=== PATIENT | female | born 1990 | race African-American/Black ===

== ENCOUNTER → 2018-05-01 | Emergency (ER) | payer MEDICAID ==
[~2018-05-01] VITALS: Ht 188 cm; Wt 93.2 kg
[~2018-05-01] MED LIST: MOTRIN600 MG PO; PERCOCET 5/3251 TA1 PO; PRENATABS RX TA1 TAB PO; VENTOLIN HFA18 GM INH
[2018-05-01 15:42] VITALS: BP 119/81; Ht 188 cm; Wt 93.2 kg
[2018-05-01 16:18] LABS: BASOPHILS 0.6 % (0-2); EOSINOPHILS 7.5 % (0-7); HEMATOCRIT 41.4 % (36.0-48.0); HEMOGLOBIN 15.1 g/dL (12-16); IMMATURE GRANULOCYTES 0.2 % (0-5); LYMPHOCYTES 38.9 % (15-50); MCH 31.8 pg (26.0-34.0); MCHC 36.5 g/dL (31.0-37.0); MCV 87.2 fL (80.0-100.0); MEAN PLATELET VOLUME 9.6 fL (7.4-10.4); NEUTROPHILS 44.8 % (40-80); RBC 4.75 10x6/uL (4.00-5.40); RDW 12.1 % (11.5-14.5); WBC 4.7 10x3/uL (4.8-10.8)
[2018-05-01 16:20] LABS: PLATELET COUNT 219 10x3/uL (130-400)
[2018-05-01 16:32] LABS: ALBUMIN 3.9 g/dL (3.4-5.0); ANION GAP 13.3 mmol/L (8-16); BILIRUBIN - TOTAL 1.4 mg/dL (0.2-1.3); CALCIUM 9.4 mg/dL (8.5-10.1); CREATININE - SERUM 1.1 mg/dL (0.6-1.3); POTASSIUM - SERUM 3.3 mmol/L (3.5-5.1); PROTEIN - SERUM 8.4 g/dL (6.4-8.2)
== END | disposition home or self-care (01) ==
LOC: D.ER 15:24
PROVIDERS: Emergency Medicine
DX: J45.901 Unspecified asthma with (acute) exacerbation (principal)

== ENCOUNTER 2018-11-21 14:41 | Emergency (ER) | payer MEDICAID ==
[~2018-11-21] VITALS: Ht 188 cm; Wt 100.0 kg
[2018-11-21 15:15] VITALS: Ht 188 cm; Wt 100.0 kg
[2018-11-21 17:10] VITALS: BP 117/77
== END 2018-11-21 17:10 | disposition home or self-care (01) ==
LOC: D.ER 14:41
DX: M25.531 Pain in right wrist (principal)

== ENCOUNTER 2019-07-10 07:16 | Emergency (ER) | payer MEDICAID ==
[~2019-07-10] VITALS: Ht 188 cm; Wt 100.0 kg
[2019-07-10 07:24] VITALS: Ht 188 cm; Wt 100.0 kg
[2019-07-10] MEDS ORDERED: MUCINEX DM ER1 EAC1 PO (07:36)
[2019-07-10] MEDS ORDERED: FLUTICASONE PRO16 GM NASAL (07:36)
[2019-07-10 07:42] VITALS: BP 122/64
== END 2019-07-10 07:42 | disposition home or self-care (01) ==
LOC: D.ER 07:16
DX: B34.9 Viral infection, unspecified (principal); J45.909 Unspecified asthma, uncomplicated

== ENCOUNTER 2020-01-03 16:05 | Emergency (ER) | payer MEDICAID ==
[~2020-01-03] VITALS: Ht 188 cm; Wt 109.1 kg
[~2020-01-03 16:05] MED LIST changes: +ALBUTEROL SULF8.5 GM INH; +FLOVENT HFA 11012 GM INH; +FLUTICASONE PRO16 GM NASAL; +MUCINEX DM ER1 EAC1 PO
[2020-01-03 16:09] VITALS: Ht 188 cm; Wt 109.1 kg
[2020-01-03 18:20] VITALS: BP 118/76
== END 2020-01-03 18:20 | disposition home or self-care (01) ==
LOC: D.ER 16:05
DX: S01.91XA Laceration without foreign body of unspecified part of head, initial encounter (principal); W22.8XXA Striking against or struck by other objects, initial encounter; Y93.9 Activity, unspecified; Y92.9 Unspecified place or not applicable; J45.909 Unspecified asthma, uncomplicated

== ENCOUNTER 2020-01-16 12:25 | Emergency (ER) | payer MEDICAID ==
[~2020-01-16] VITALS: Ht 188 cm; Wt 104.5 kg
[2020-01-16 12:40] VITALS: Ht 188 cm; Wt 104.5 kg
[2020-01-16 13:42] VITALS: BP 122/68
== END 2020-01-16 13:44 | disposition home or self-care (01) ==
LOC: D.ER 12:25
DX: Z48.02 Encounter for removal of sutures (principal); J45.909 Unspecified asthma, uncomplicated